=== PATIENT | female | born 1990 | race Two or more races ===

== ENCOUNTER 2022-04-19 08:54 | Emergency (ER) | payer OTHER ==
[~2022-04-19] VITALS: Ht 160 cm; Wt 86.2 kg
[~2022-04-19 08:54] MED LIST: LACTULOSE10 GM/151 PO; LEVSIN/SL0.125 MG SL; NEURONTIN300 MG; PEPCID AC10 MG; PEPCID AC20 MG PO; ZOLOFT25 MG PO
== END 2022-04-19 22:12 | disposition home or self-care (01) ==
LOC: ER 08:54
DX: R10.9 Unspecified abdominal pain (principal); N13.30 Unspecified hydronephrosis

== ENCOUNTER 2023-12-15 08:11 | Emergency (ER) | payer OTHER ==
[~2023-12-15] VITALS: Ht 160 cm; Wt 78.9 kg
[2023-12-15] MEDS ORDERED: FAMOtidine 10 MG/ML (4ML VIAL) IV STA (08:36)
[2023-12-15] MEDS ORDERED: MAG HYDROX/ALUMINUM HYD/SIMETH 30 ML BLIST.PACK PO STA (08:37)
[2023-12-15] MEDS ORDERED: ONDANSETRON HCL 2 MG/ML VIAL IV STA (08:37)
[2023-12-15] MEDS ORDERED: LORazepam 0.5 MG TABLET PO STA (08:38)
[2023-12-15] MEDS ORDERED: RINGERS SOLUTION,LACTATED 500 ML IV STA (08:39)
[2023-12-15 09:26] LABS: HEMATOCRIT 38.1 % (36.0-45.00); HEMOGLOBIN 12.8 g/dL (12.0-15.00); MEAN CORPUSCULAR HEMOGLOBIN 27.3 pg (27.00-32.0); MEAN CORPUSCULAR HGB CONC 33.7 g/dl (32.0-36.0); PLATELET COUNT 226 K/uL (150-450); RED CELL DISTRIBUTION WIDTH 13.9 % (11.5-14.5)
[2023-12-15 09:29] LABS: URINE APPEARANCE Clear; URINE BILIRRUBIN Negative (NEGATIVE); URINE BLOOD Negative; URINE COLOR Yellow; URINE GLUCOSE Negative (NEGATIVE); URINE LEUKOCYTE Negative; URINE NITRATE Negative; URINE PROTEIN Negative (NEGATIVE); URINE UROBILINOGEN 0.2 E.U./dl
[2023-12-15 09:32] LABS: URINE BACTERIA 23.9 uL (0.0-1933); URINE RBC 12.3 uL (0.0-20.8); URINE WBC 3.4 uL (0.0-23.2)
[2023-12-15 10:00] LABS: CALCIUM 9.4 mg/dL (8.5-10.1); CREATININE SERUM 0.6 mg/dL (0.55-1.02); GFR 116.6; POTASSIUM 4.49 mEq/L (3.5-5.1)
[2023-12-15] MEDS ORDERED: ONDANSETRON HCL 2 MG/ML VIAL IV ONE (18:45)
== END 2023-12-15 19:13 | disposition home or self-care (01) ==
LOC: ER 08:11
PROVIDERS: General Practice
DX: N30.90 Cystitis, unspecified without hematuria (principal); R10.32 Left lower quadrant pain; F41.8 Other specified anxiety disorders; Z88.0 Allergy status to penicillin; Z88.6 Allergy status to analgesic agent; Z88.8 Allergy status to other drugs, medicaments and biological substances; K21.9 Gastro-esophageal reflux disease without esophagitis; Z20.822 Contact with and (suspected) exposure to COVID-19

== ENCOUNTER 2023-12-17 18:26 | Emergency (ER) | payer OTHER ==
[~2023-12-17] VITALS: Ht 160 cm; Wt 78.9 kg
[2023-12-17] MEDS ORDERED: MEPERIDINE HCL/PF 50 MG/ML VIAL IM ONE (19:45)
[2023-12-17] MEDS ORDERED: BARIUM SULFATE 450 ML ORAL.SUSP PO ONE (20:34)
[2023-12-17 21:09] LABS: PH,URINE 7.5 (5.0-8.0); URINE APPEARANCE Clear; URINE BILIRRUBIN Negative (NEGATIVE); URINE BLOOD Negative; URINE COLOR Yellow; URINE GLUCOSE Negative (NEGATIVE); URINE LEUKOCYTE Negative; URINE NITRATE Negative; URINE PROTEIN Negative (NEGATIVE); URINE UROBILINOGEN 0.2 E.U./dl
[2023-12-17 21:10] LABS: HEMATOCRIT 37.8 % (36.0-45.00); HEMOGLOBIN 12.5 g/dL (12.0-15.00); MEAN CELL VOLUME 81.1 fL (80.00-100.00); MEAN CORPUSCULAR HEMOGLOBIN 26.8 pg (27.00-32.0); PLATELET COUNT 227 K/uL (150-450); RED BLOOD COUNT 4.67 M/uL (4.00-6.00); RED CELL DISTRIBUTION WIDTH 13.7 % (11.5-14.5)
[2023-12-17 21:13] LABS: URINE BACTERIA 32.7 uL (0.0-1933); URINE EPITHELIAL CELLS 1.6 uL (0.0-38.8); URINE RBC 2.1 uL (0.0-20.8)
[2023-12-17 21:27] LABS: URINE WBC 0.6 uL (0.0-23.2)
[2023-12-17 21:31] LABS: CALCIUM 8.9 mg/dL (8.5-10.1); CREATININE SERUM 0.62 mg/dL (0.55-1.02); GFR 112.27; POTASSIUM 3.55 mEq/L (3.5-5.1)
[2023-12-17] MEDS ORDERED: ONDANSETRON HCL 2 MG/ML VIAL IV STA (23:17)
[2023-12-17] MEDS ORDERED: ONDANSETRON HCL 2 MG/ML VIAL ONE (23:45)
[2023-12-18] MEDS ORDERED: ORPHENADRINE CITRATE 30 MG/ML AMPUL IM STA (03:19)
[2023-12-18] MEDS ORDERED: CIPROFLOXACIN IN 5 % DEXTROSE 400 MG/200 ML PIGGYBAG IV STA (03:19)
[2023-12-18] MEDS ORDERED: CIPROFLOXACIN IN 5 % DEXTROSE 400 MG/200 ML PIGGYBAG IV ONE (03:23)
[2023-12-18] MEDS ORDERED: ORPHENADRINE CITRATE 30 MG/ML AMPUL ONE (03:23)
[2023-12-18] MEDS ORDERED: DOLOGESIC-DF 51 EACH PO (05:46)
[2023-12-18] MEDS ORDERED: CIPRO500 MG PO (05:46)
== END 2023-12-18 05:53 ==
LOC: ER 18:26
PROVIDERS: Emergency Medicine
DX: N30.90 Cystitis, unspecified without hematuria (principal); M54.9 Dorsalgia, unspecified; Z88.6 Allergy status to analgesic agent; Z88.0 Allergy status to penicillin; Z88.8 Allergy status to other drugs, medicaments and biological substances

== ENCOUNTER 2024-03-14 01:19 | Emergency (ER) | payer OTHER ==
[~2024-03-14] VITALS: Ht 160 cm; Wt 75.7 kg
[~2024-03-14 01:19] MED LIST changes: +CIPRO500 MG PO; +DOLOGESIC-DF 51 EACH PO
[2024-03-14] MEDS ORDERED: CARAFATE1 GM PO (01:30)
[2024-03-14] MEDS ORDERED: FAMOTIDINE40 MG PO (01:31)
[2024-03-14] MEDS ORDERED: MEPERIDINE HCL/PF 50 MG/ML VIAL IM STA (01:55)
[2024-03-14] MEDS ORDERED: HYOSCYAMINE SULFATE 0.125 MG TAB.SUBL SL STA (01:56)
[2024-03-14] MEDS ORDERED: PROMETHAZINE HCL 50 MG/ML AMPUL IM STA (01:56)
[2024-03-14 02:17] LABS: HEMATOCRIT 36.4 % (36.0-45.00); HEMOGLOBIN 12.1 g/dL (12.0-15.00); MEAN CELL VOLUME 79.9 fL (80.00-100.00); MEAN CORPUSCULAR HEMOGLOBIN 26.6 pg (27.00-32.0); MEAN CORPUSCULAR HGB CONC 33.3 g/dl (32.0-36.0); PLATELET COUNT 264 K/uL (150-450); RED BLOOD COUNT 4.55 M/uL (4.00-6.00); RED CELL DISTRIBUTION WIDTH 14.2 % (11.5-14.5)
[2024-03-14 02:41] LABS: URINE APPEARANCE Clear; URINE BILIRRUBIN Negative (NEGATIVE); URINE BLOOD Negative; URINE COLOR Yellow; URINE GLUCOSE Negative (NEGATIVE); URINE KETONE Negative (NEGATIVE); URINE LEUKOCYTE Negative; URINE NITRATE Negative; URINE PROTEIN Negative (NEGATIVE); URINE UROBILINOGEN 0.2 E.U./dl
[2024-03-14 02:45] LABS: URINE BACTERIA 154.9 uL (0.0-1933); URINE EPITHELIAL CELLS 4.1 uL (0.0-38.8)
[2024-03-14 02:47] LABS: CALCIUM 9.3 mg/dL (8.5-10.1); CREATININE SERUM 0.83 mg/dL (0.55-1.02); GFR 79.67; POTASSIUM 3.54 mEq/L (3.5-5.1)
[2024-03-14 02:54] LABS: URINE CAST 0.15 uL (0.0-1.40); URINE WBC 1.3 uL (0.0-23.2)
== END 2024-03-14 03:57 | disposition home or self-care (01) ==
LOC: ER 01:20
DX: K59.01 Slow transit constipation (principal); R10.31 Right lower quadrant pain; N20.0 Calculus of kidney; Z88.6 Allergy status to analgesic agent; Z88.0 Allergy status to penicillin; Z88.8 Allergy status to other drugs, medicaments and biological substances

== ENCOUNTER 2024-12-02 09:31 | Outpatient (CLI) | payer OTHER ==
[~2024-12-02 09:31] MED LIST changes: +CARAFATE1 GM PO; +FAMOTIDINE40 MG PO
== END 2024-12-02 09:40 | disposition home or self-care (01) ==
LOC: TOM 09:31
PROVIDERS: ATTEND Surgery
DX: R10.9 Unspecified abdominal pain (principal); R19.4 Change in bowel habit; R14.0 Abdominal distension (gaseous); K30 Functional dyspepsia; K21.00 Gastro-esophageal reflux disease with esophagitis, without bleeding; K64.8 Other hemorrhoids; K44.9 Diaphragmatic hernia without obstruction or gangrene; K80.10 Calculus of gallbladder with chronic cholecystitis without obstruction